=== PATIENT | female | born 1950 | race Caucasian/White ===

== ENCOUNTER 2016-12-18 10:50 | Outpatient (CLI) | payer OTHER | END 2016-12-18 10:51 | disposition home or self-care (01) | DRG 561 | LOC: CONVCARE 10:50 | PROVIDERS: ATTEND Orthopaedic Surgery | DX: S82.142D Displaced bicondylar fracture of left tibia, subsequent encounter for closed fracture with routine healing (principal) | CPT/HCPCS: 73564 ==

== ENCOUNTER 2017-01-15 11:34 | Outpatient (CLI) | payer OTHER | END 2017-01-15 11:35 | disposition home or self-care (01) | DRG 561 | LOC: CONVCARE 11:34 | PROVIDERS: ATTEND Orthopaedic Surgery | DX: S82.145D Nondisplaced bicondylar fracture of left tibia, subsequent encounter for closed fracture with routine healing (principal) | CPT/HCPCS: 73560 ==

== ENCOUNTER 2017-02-12 11:45 | Outpatient (CLI) | payer OTHER | END 2017-02-12 11:46 | disposition home or self-care (01) | DRG 561 | LOC: CONVCARE 11:45 | PROVIDERS: ATTEND Orthopaedic Surgery | DX: S82.145D Nondisplaced bicondylar fracture of left tibia, subsequent encounter for closed fracture with routine healing (principal) | CPT/HCPCS: 73560 ==